=== PATIENT | male | born 1975 | race Caucasian/White ===

== ENCOUNTER 2021-02-10 12:24 | Emergency (ER) | payer SELFPAY ==
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
--- NOTE | 2021-02-10 13:59 | CR ---
Indication: Injury Comparison: None available. Technique: AP, Lateral, and Oblique views right hand were obtained Findings: There is comminuted fracture of the distal 4th metacarpal. There is no other displaced injury identified. The joint spaces are grossly preserved. There is moderate dorsal soft tissue swelling. Impression: Comminuted fracture of the distal 4th metacarpal with associated soft tissue swelling. Dictated by Pranay Camarillo MD @ 02/10/2021 1:57:[address] Pranay Camarillo @ Feb 10 2021 1:57PM
== END 2021-02-10 13:54 | disposition home or self-care (01) ==
LOC: MW.ED 12:24
DX: S62.334A Displaced fracture of neck of fourth metacarpal bone, right hand, initial encounter for closed fracture (principal); W22.8XXA Striking against or struck by other objects, initial encounter
CPT/HCPCS: 29125; 73130-26-RT; 73130-RT; 99283-25

== ENCOUNTER 2021-07-27 13:01 | Emergency (ER) | payer SELFPAY ==
--- NOTE | 2021-07-27 13:17 | EDM.PDOC ---
ED HPI GENERAL MEDICAL PROBLEM - General Chief Complaint: Back Pain or Injury Stated Complaint: FELL ON ICE HURT BACK Time Seen by Provider: 07/27/21 13:04 Source of Information: Reports: Patient History Limitations: Reports: No Limitations - History of Present Illness INITIAL COMMENTS - FREE TEXT/NARRATIVE: HISTORY AND PHYSICAL: History of present illness: Patient is a 46-year-old male who presents to the emergency room with complaints of lumbar back pain that radiates into his left hip/glutes. He states last evening he slipped and caught himself but felt a sharp pain to the low back region. He did have some left over Flexeril which he took, did not give any relief. He denies any urinary or fecal incontinence. Denies any numbness, tingling, saddle paresthesia or weakness. Denies any other extremity involvement. Patient denies any fever, chills, headache, change in vision, syncope or near syncope. Denies any chest pain, back pain, shortness of breath or cough. Denies any GI or symptoms. No recent travel or sick contacts. Review of systems: As per history of present illness and below otherwise all systems reviewed and negative. Past medical history: As per history of present illness and as reviewed below otherwise noncontributory. Surgical history: As per history of present illness and as reviewed below otherwise noncontributory. Social history: See social history for further information Family history: As per history of present illness and as reviewed below otherwise noncontributory. Physical exam: General: Well developed and well nourished. Alert and orientated x 3. Nontoxic in appearance and in no acute distress. Vital signs are stable and have been reviewed by me. Nursing notes were reviewed. HEENT: Atraumatic, normocephalic, pupils equal and reactive bilaterally, negative for conjunctival pallor or scleral icterus, mucous membranes moist, TMs normal bilaterally, throat clear, neck supple, nontender, trachea midline. No dr ooling or trismus noted. No meningeal signs. No hot potato voice noted. Lungs: Clear to auscultation bilaterally. No wheezes, rales, or rhonchi. Chest nontender. Normal work of breathing, no accessory muscles used. Heart: S1S2, regular rate and rhythm without overt murmur, gallops, or rubs. No JVD. No peripheral edema Abdomen: Soft, nondistended, nontender. Normoactive bowel sounds. Negative for masses or costovertebral tenderness. C-spine/Back: No pinpoint vertebral tenderness upon palpation. No crepitus, step-offs or obvious deformities. Left sided perimuscular tenderness into the left glutes. pelvis is stable and nontender. Patient is ambulatory into the emergency room without difficulty or deficit. Able to rock back on heels and walk on toes. Denies any urinary or fecal incontinence. Denies any numbness, tingling or saddle paresthesia. No concerns of serious infection, fracture or cord compression, or cauda equina syndrome. Deep tendon reflexes brisk bilaterally. Skin: Intact, warm, dry. No lesions or rashes noted. Hematologic: No petechiae or purpra. Mucosa appropriate color and normal nail bed color and refill. Extremities: Atraumatic, moves all extremities per self without difficulty or deficits, negative for cords or calf pain. Neurovascular unremarkable. Neuro: Awake, alert, oriented. Cranial nerves II through XII unremarkable. Cerebellum unremarkable. Motor and sensory unremarkable throughout. Exam nonfocal. Psychiatric: Mood and affect are appropriate. Normal thought process. Answering questions appropriately. Please note that the patient was seen and evaluated during the 2019 SARS-CoV-2 novel coronavirus pandemic period. Community viral transmission is ongoing at time of this encounter and the emergency department is operating under pandemic response procedures. Medical Decision Making: Patient is a 46-year-old male who presents to the emergency room with complaints of lumbar back pain that radiates into the left glutes. Patient states he slipped and was able to catch himself before he fell to the ground but since has had pain to the low back region. Physical exam shows no bony tenderness although he has left sided paraspinous muscular tenderness that radiates into the glute. Neurologically intact. We did discuss imaging, will do at this time. He does have a ride home, will give him pain medication while pending imaging results. X-ray shows no acute findings. Will do limited pain medication and steroids for comfort. I have talked with the patient about today's findings, in addition to providing specific details for plan of care. Reassessment at the time of disposition demonstrates that the patient is in no acute distress. The patient is stable for discharge, counseling was provided and we discussed in great detail signs and symptoms that would prompt them to return to the Emergency Department. Medication, follow up and supportive care measures were reviewed and discussed. Voices understanding and is agreeable to plan of care. Denies any further questions or concerns at this time. Diagnostics: Lumbar x-ray Therapeutics: Solu-Medrol, Percocet Prescription: Percocet (#10), Prednisone Impression: Lumbago with sciatica Plan: 1. You were evaluated today on an emergent basis. Your x-ray shows no acute or concerning findings. When resting please lay on a flat firm surface. Limit your immobility to prevent muscle stiffness. Get up to ambulate/move around/gentle stretching multiple times throughout the day. May alternate heat and ice to the painful areas 2. You can take Tylenol as needed for pain and fever management. Percocet for moderate to sever pain, this medication does cause drowsiness, so do not take while driving or needing to be functioning outside the house. 3. We encourage you to follow up with your primary care provider and/or recommended specialist in the next few days for re-evaluation and further care/management. 4. If your symptoms should worsen, new symptoms develop or any of the signs and symptoms we discussed should arise please return to the emergency room or call 911 (if needed). Definitive disposition and diagnosis as appropriate pending reevaluation and review of above. Back Pain Score (Numeric/FACES): 10 - Related Data Allergies Allergy/AdvReac Type Severity Reaction Status Date / Time ibuprofen [From Advil] Allergy Hives Verified 07/27/21 13:37 Penicillins Allergy Hives Verified 07/27/21 13:37 Home Meds: Home Meds Hydrocodone/Acetaminophen [HYDROcodone-Acetaminophen 5-325 MG] 1 - 2 tab PO Q4HR PRN #15 tablet 07/27/21 [Rx] predniSONE [Prednisone] 40 mg PO DAILY 4 Days #8 tablet 07/27/21 [Rx] Past Medical History HEENT History: Reports: None Cardiovascular History: Reports: None Respiratory History: Reports: None Gastrointestinal History: Reports: None Genitourinary History: Reports: None Musculoskeletal History: Reports: None Neurological History: Reports: None Psychiatric History: Reports: None Endocrine/Metabolic History: Reports: None Hematologic History: Reports: None Immunologic History: Reports: None Oncologic (Cancer) History: Reports: None Dermatologic History: Reports: None - Infectious Disease History Infectious Disease History: Reports: None - Past Surgical History Head Surgeries/Procedures: Reports: None HEENT Surgical History: Reports: None Cardiovascular Surgical History: Reports: None Respiratory Surgical History: Reports: None GI Surgical History: Reports: None Male Surgical History: Reports: None Endocrine Surgical History: Reports: None Neurological Surgical History: Reports: None Musculoskeletal Surgical History: Reports: None Oncologic Surgical History: Reports: None Dermatological Surgical History: Reports: None Social & Family History - Family History Family Medical History: No Pertinent Family History ED ROS GENERAL - Review of Systems Review Of Systems: Comprehensive ROS is negative, except as noted in HPI. ED EXAM,LOWER BACK PAIN/INJURY - Physical Exam Exam: See Below (See dictation) Course - Vital Signs Last Recorded V/S: Last Vital Signs Temp 96.9 F 07/27/21 13:37 Pulse 73 07/27/21 13:37 Resp 16 07/27/21 13:37 BP 105/68 07/27/21 13:37 Pulse Ox 99 07/27/21 13:37 - Orders/Labs/Meds Meds: Medications Discontinued Medications Generic Name Dose Route Start Last Admin Trade Name Freq PRN Reason Stop Dose Admin Methylprednisolone Sodium Succinate 125 mg 07/27/21 13:32 07/27/21 13:47 Methylprednisolone Sodium Succinate 125 Mg/2 Ml Sdv IM 07/27/21 13:33 Not Given ONETIME ONE Oxycodone/Acetaminophen 1 tab 07/27/21 13:32 07/27/21 13:45 Acetaminophen/Oxycodone 325-5 Mg Tab PO 07/27/21 13:33 1 tab ONETIME ONE Administration Prednisone 40 mg 07/27/21 13:48 07/27/21 14:08 Prednisone 20 Mg Tab PO 07/27/21 13:49 40 mg NOW STA Administration Departure - Departure Time of Disposition: 15:28 Disposition: Home, Self-Care 01 Clinical Impression: Lumbago with sciatica, left side Qualifiers: Chronicity: acute Back pain laterality: left Qualified Code(s): M54.42 - Lumbago with sciatica, left side - Discharge Information Prescriptions: Hydrocodone/Acetaminophen [HYDROcodone-Acetaminophen 5-325 MG] 1 - 2 tab PO Q4HR PRN #15 tablet PRN Reason: Pain (Moderate 4-6) predniSONE [Prednisone] 40 mg PO DAILY 4 Days #8 tablet Instructions: Sciatica, [id number] Referrals: PCP,None [Primary Care Provider] - Forms: ED Department Discharge Additional Instructions: The following information is given to patients seen in the emergency department who are being discharged to home. This information is to outline your options for follow-up care. We provide all patients seen in our emergency department with a follow-up referral. The need for follow-up, as well as the timing and circumstances, are variable depending upon the specifics of your emergency department visit. If you don't have a primary care physician on staff, we will provide you with a referral. We always advise you to contact your personal physician following an emergency department visit to inform them of the circumstance of the visit and for follow-up with them and/or the need for any referrals to a consulting specialist. The emergency department will also refer you to a specialist when appropriate. This referral assures that you have the opportunity for follow-up care with a specialist. All of these measure are taken in an effort to provide you with optimal care, which includes your follow-up. Under all circumstances we always encourage you to contact your private physician who remains a resource for coordinating your care. When calling for follow-up care, please make the office aware that this follow-up is from your recent emergency room visit. If for any reason you are refused follow-up, please contact the [facility] Emergency Department at and asked to speak to the emergency department charge nurse. [facility] [address] [place] [id number] [id number] Thank you for choosing the [facility] emergency department in [place] for your medical needs today. It was a pleasure caring for you. Today you were seen in the emergency department for back pain Your prescription was electronically sent to: [facility] Medication/Directions: Prednisone, oral steroid. Take as directed. Percocet for moderate to severe pain, this is a narcotic so do not take while driving or needing to be functioning outside the house. DO NOT mix with alcohol or any other medications. 1. You were evaluated today on an emergent basis. Your 2. You can alternate Tylenol and ibuprofen as needed for pain and fever management. Percocet for moderate to sever pain, this medication does cause drowsiness, so do not take while driving or needing to be functioning outside the house. 3. We encourage you to follow up with your primary care provider and/or recommended specialist in the next few days for re-evaluation and further care/management. 4. If your symptoms should worsen, new symptoms develop or any of the signs and symptoms we discussed should arise please return to the emergency room or call 911 (if needed). Sepsis Event Note (ED) - Focused Exam Vital Signs: Vital Signs Temp Pulse Resp BP Pulse Ox 07/27/21 13:37 96.9 F 73 16 105/68 99
[2021-07-27] MEDS ORDERED: methylPREDNISolone Sodium Succinate 125 MG/2 ML SDV IM ONE (13:32)
[2021-07-27] MEDS ORDERED: Acetaminophen/oxyCODONE 325-5 MG Tab PO ONE (13:32)
[2021-07-27] MEDS ORDERED: predniSONE 20 MG Tab PO STA (13:48)
--- NOTE | 2021-07-27 15:24 | CR ---
INDICATION: Patient fell on ice. TECHNIQUE: Lumbar spine, 3 views. COMPARISON: None. FINDINGS: There are 5 lumbar type vertebral bodies. Mild right convex lumbar curve. No acute fracture identified. Vertebral body heights are well maintained. Normal vertebral body alignment. No significant disc space narrowing. The sacroiliac joints are normal in appearance. Soft tissues are unremarkable. IMPRESSION: No acute or significant findings. Dictated by Zulema Garcia MD @ 07/27/2021 3:22:21 PM (Electronically Signed)
== END 2021-07-27 15:25 | disposition home or self-care (01) ==
LOC: MW.ED 13:01
DX: M54.42 Lumbago with sciatica, left side (principal); Z88.0 Allergy status to penicillin; Z88.6 Allergy status to analgesic agent
CPT/HCPCS: 72100; 99283; A9270

== ENCOUNTER 2022-05-17 09:34 | Emergency (ER) | payer BC ==
[2022-05-17] MEDS ORDERED: Acetaminophen/oxyCODONE 325-5 MG Tab PO ONE (10:44)
== END 2022-05-17 11:05 | disposition home or self-care (01) ==
LOC: MW.ED 09:34
DX: M54.50 Low back pain, unspecified (principal); Z88.6 Allergy status to analgesic agent; Z88.0 Allergy status to penicillin; Z79.899 Other long term (current) drug therapy
CPT/HCPCS: 81003; 99283; A9270